=== PATIENT | male | born 1965 | race Caucasian/White ===

== ENCOUNTER 2017-03-24 07:06 | Emergency (ER) | payer OTHER ==
[2017-03-24 07:22] VITALS: BP 147/85; PULSE 68; TEMP 98; BMI 32.5
--- NOTE | 2017-03-24 08:18 | PDOC ---
History of Present Illness - General History Source: Patient Exam Limitations: No Limitations - History of Present Illness Initial Comments: 03/24/17 08:22 The patient is a 51-year-old male, with no significant past medical history, who presents to the ED with 3 weeks of red, itchy eyes, yellow discharge. Pt states that he suffers from seasonal allergies. He has been taking brandon, visine, and a nasal spray but with no relief of his symptoms. Pt is concerned for infection in his eyes due to excessive rubbing. Patient reports runny nose. The patient denies any fever, cough, chills, nausea, vomiting, diarrhea, or abdominal pain. The patient denies any shortness of breath or chest pain. <Jessica Lira - Last Filed: 03/24/17 08:21> <Rosemarie Golden - Last Filed: 03/25/17 09:36> - General Chief Complaint: Eye Problem Stated Complaint: EYE PROBLEM Time Seen by Provider: 03/24/17 07:32 Past History <Jessica Lira - Last Filed: 03/24/17 08:21> - Past Medical History Seizures: Yes (last seizure 2006) - Immunization History Immunization Up to Date: Yes - Psycho/Social/Smoking Cessation Hx Anxiety: No Suicidal Ideation: No Smoking Status: No Smoking History: Never smoked Have you smoked in the past 12 months: No Number of Cigarettes Smoked Daily: 0 Information on smoking cessation initiated: No Hx Alcohol Use: No Drug/Substance Use Hx: No Substance Use Type: None <Rosemarie Golden - Last Filed: 03/25/17 09:36> - Past Medical History Allergies/Adverse Reactions: Allergies Allergy/AdvReac Type Severity Reaction Status Date / Time phenytoin sodium extended Allergy Rash Verified 03/24/17 07:18 [From Dilantin] Home Medications: Ambulatory Orders NK [No Known Home Medication] 03/24/17 Polymyxin B Sulf/Trimethoprim [Polymyxin B-Tmp Eye Drops] 1 - 2 drop OU Q6H #10 ml 03/24/17 Review of Systems - Review of Systems Able to Perform ROS?: Yes Comments:: 03/24/17 08:22 GENERAL/CONSTITUTIONAL: No fever or chills. No weakness. HEAD, EYES, EARS, NOSE AND THROAT: No change in vision. No ear pain or discharge. No sore throat. (+)Red, itchy eyes, yellow discharge. Runny nose. CARDIOVASCULAR: No chest pain or shortness of breath. RESPIRATORY: No cough, wheezing, or hemoptysis. GASTROINTESTINAL: No nausea, vomiting, diarrhea or constipation. GENITOURINARY: No dysuria, frequency, or change in urination. MUSCULOSKELETAL: No joint or muscle swelling or pain. No neck or back pain. SKIN: No rash NEUROLOGIC: No headache, vertigo, loss of consciousness, or change in strength/ sensation. ENDOCRINE: No increased thirst. No abnormal weight change. HEMATOLOGIC/LYMPHATIC: No anemia, easy bleeding, or history of blood clots. ALLERGIC/IMMUNOLOGIC: No hives or skin allergy. <Jessica Lira - Last Filed: 03/24/17 08:21> *Physical Exam - Vital Signs Last Vital Signs Temp Pulse Resp BP Pulse Ox 98 F 68 18 147/85 99 03/24/17 07:16 03/24/17 07:16 03/24/17 07:16 03/24/17 07:16 03/24/17 07:16 <Jessica Lira - Last Filed: 03/24/17 08:21> - Vital Signs Last Vital Signs Temp Pulse Resp BP Pulse Ox 98 F 68 18 147/85 99 03/24/17 07:16 03/24/17 07:16 03/24/17 07:16 03/24/17 07:16 03/24/17 07:16 - Physical Exam Comments: GENERAL: Awake, alert, and fully oriented, in no acute distress HEAD: No signs of trauma EYES: PERRLA, EOMI, sclera anicteric, conjunctiva injected. Matting of the lashes B/L. ENT: Auricles normal inspection, hearing grossly normal, nares with boggy turbinates B/L. Oropharynx clear without exudates. Moist mucosa NECK: Normal ROM, supple, no lymphadenopathy, JVD, or masses LUNGS: Breath sounds equal, clear to auscultation bilaterally. No wheezes, and no crackles HEART: Regular rate and rhythm, normal S1 and S2, no murmurs, rubs or gallops ABDOMEN: Soft, nontender, normoactive bowel sounds. No guarding, no rebound. No masses EXTREMITIES: Normal range of motion, no edema. No clubbing or cyanosis. No cords, erythema, or tenderness NEUROLOGICAL: Cranial nerves II through XII grossly intact. Normal speech, normal gait SKIN: Warm, Dry, normal turgor, no rashes or lesions noted. <Rosemarie Golden - Last Filed: 03/25/17 09:36> Medical Decision Making - Medical Decision Making Symptoms likely due to seasonal allergic conjunctivitis followed by excessive rubbing, leading to bacterial conjunctivitis. Will treat with antibiotic drops, zaditor (OTC), brandon, and nasacort. <Rosemarie Golden - Last Filed: 03/25/17 09:36> *DC/Admit/Observation/Transfer - Attestations Scribe Attestion: 03/24/17 08:23 Documentation prepared by Jessica Lira, acting as outside medical sales representative for Rosemarie Golden MD. <Jessica Lira - Last Filed: 03/24/17 08:21> - Discharge Dispostion Admit: No <Rosemarie Golden - Last Filed: 03/25/17 09:36> Diagnosis at time of Disposition: Conjunctivitis Qualifiers: Conjunctivitis type: acute Acute conjunctivitis type: bacterial Laterality: bilateral Qualified Code(s): H10.33 - Unspecified acute conjunctivitis, bilateral Allergic conjunctivitis Qualifiers: Laterality: bilateral Qualified Code(s): H10.13 - Acute atopic conjunctivitis, bilateral - Discharge Dispostion Disposition: HOME Condition at time of disposition: Stable - Prescriptions Prescriptions: Polymyxin B Sulf/Trimethoprim [Polymyxin B-Tmp Eye Drops] 1 - 2 drop OU Q6H #10 ml - Patient Instructions Printed Discharge Instructions: DI for Conjunctivitis, DI for Allergic Rhinitis Additional Instructions: ZADITOR DROPS (OVER THE COUNTER) TO THE EYES ON BOTH SIDES EVERY 8-12 HOURS. TAKE POLYMYXIN/TMP DROPS PRESCRIBED TO TREAT THE INFECTION. NASACORT (OVER THE COUNTER) 2 SPRAYS EACH NOSTRIL DAILY. YOU MUST CONSISTENTLY TAKE EVERY DAY FOR IT TO WORK! Print Language: BELARUSIAN
== END 2017-03-24 09:27 | disposition home or self-care (01) ==
LOC: JER 07:06
DX: H10.13 Acute atopic conjunctivitis, bilateral (principal); H10.33 Unspecified acute conjunctivitis, bilateral; Z86.69 Personal history of other diseases of the nervous system and sense organs
CPT/HCPCS: 99281-25

== ENCOUNTER 2018-03-22 16:32 | Emergency (ER) | payer OTHER ==
[2018-03-22 16:56] VITALS: BP 138/85; PULSE 80; TEMP 98.6; BMI 32.5
--- NOTE | 2018-03-22 16:59 | PDOC ---
Rapid Medical Evaluation Chief Complaint: Allergic Reaction Time Seen by Provider: 03/22/18 16:56 Medical Evaluation: Allergies Allergy/AdvReac Type Severity Reaction Status Date / Time phenytoin sodium extended Allergy Rash Verified 03/22/18 16:47 [From Dilantin] Vital Signs Temp Pulse Resp BP Pulse Ox 98.6 F 80 20 138/85 96 03/22/18 16:47 03/22/18 16:47 03/22/18 16:47 03/22/18 16:47 03/22/18 16:47 03/22/18 16:56 I have performed a brief in-person evaluation of this patient. The patient presents with a chief complaint of: b/l conjunctival erythema and itching x 1 week, taking claritin and otc eye drops with no relief Pertinent physical exam findings:minimal periorbital edema b/l w/ conjunctival erythema and chemosis to R eye c/w allergies conjunctivitis I have ordered the following:nothing The patient will proceed to the ED for further evaluation Discharge Disposition - Diagnosis Allergic conjunctivitis Qualifiers: Laterality: bilateral Qualified Code(s): H10.13 - Acute atopic conjunctivitis, bilateral - Referrals Referrals: Akiko Quezada [Primary Care Provider] - - Patient Instructions - Post Discharge Activity
--- NOTE | 2018-03-22 17:35 | PDOC ---
History of Present Illness - General Chief Complaint: Eye Problem Stated Complaint: ALLERGY Time Seen by Provider: 03/22/18 16:56 History Source: Patient Exam Limitations: No Limitations - History of Present Illness Initial Comments: 03/22/18 17:34 52-year-old man without significant past medical history presents emergency Department with 1 week of itchy watery eyes. Patient's been taking over-the- counter Claritin and some "eyedrops she was prescribed last year." Patient states he been expressing minimal relief of symptoms with this treatment. He denies any fevers, chills, shortness of breath, dizziness, blurry vision or eye discharge. Past History - Past Medical History Allergies/Adverse Reactions: Allergies Allergy/AdvReac Type Severity Reaction Status Date / Time phenytoin sodium extended Allergy Rash Verified 03/22/18 16:47 [From Dilantin] Home Medications: Ambulatory Orders Cromolyn Sodium [Crolom -] 2 drop OU Q4H #120 drops 03/22/18 COPD: No Seizures: Yes (last seizure 2006) - Immunization History Immunization Up to Date: Yes - Suicide/Smoking/Psychosocial Hx Smoking Status: No Smoking History: Never smoked Have you smoked in the past 12 months: No Number of Cigarettes Smoked Daily: 0 Hx Alcohol Use: No Drug/Substance Use Hx: No Substance Use Type: None Review of Systems - Review of Systems Able to Perform ROS?: Yes Is the patient limited Peruvian proficient: No Constitutional: No: Symptoms Reported HEENTM: Yes: See HPI Respiratory: No: Symptoms reported Cardiac (ROS): No: Symptoms Reported ABD/GI: No: Symptoms Reported : No: Symptoms Reported Musculoskeletal: No: Symptoms Reported Integumentary: No: Symptoms Reported Neurological: No: Symptoms reported *Physical Exam - Vital Signs Last Vital Signs Temp Pulse Resp BP Pulse Ox 98.6 F 80 20 138/85 96 03/22/18 16:47 03/22/18 16:47 03/22/18 16:47 03/22/18 16:47 03/22/18 16:47 - Physical Exam General Appearance: Yes: Appropriately Dressed. No: Apparent Distress HEENT: positive: EOMI, MAJOR, Other (Bilateral scleral injection noted to extending through the limbus. Conjunctiva inflamed bilaterally.) Neck: positive: Trachea midline Respiratory/Chest: positive: Lungs Clear, Normal Breath Sounds. negative: Respiratory Distress, Accessory Muscle Use Medical Decision Making - Medical Decision Making 03/22/18 17:36 A/P: 51-year-old male with 1 week of ALLERGIC conjunctivitis Visual acuity 20/20 EOMI PERRLA Scleral injection extending through the limbus Conjunctival erythema present Symptoms consistent with ALLERGIC conjunctivitis. I'll prescribe patient cromolyn drops in addition to [id number] antihistamine medication. Patient verbalizes understanding of discharge instructions. *DC/Admit/Observation/Transfer Diagnosis at time of Disposition: Allergic conjunctivitis Qualifiers: Laterality: bilateral Qualified Code(s): H10.13 - Acute atopic conjunctivitis, bilateral - Discharge Dispostion Disposition: HOME Condition at time of disposition: Stable Decision to Admit order: No - Prescriptions Prescriptions: Cromolyn Sodium [Crolom -] 2 drop OU Q4H #120 drops - Referrals Referrals: Akiko Quezada [Primary Care Provider] - - Patient Instructions Additional Instructions: Rest, drink lots of fluids: Teas, water, soups Saltwater gargles. Consider humidifier in room at night Steamy showers/seem to face break up mucus Avoid contact with allergens, exposure to pollens, close windows on a windy day Lots of handwashing and good hygiene Continue [id number] medications for symptomatic relief- use cromolyn eyedrops for itching Continue antihistamines daily until pollen season is over; Zyrtec, Claritin, Stephanie, Xyzol during the daytime and Benadryl at nighttime as will make sleepy Tylenol or Motrin for fever and pain Followup with private physician in one to 2 days as needed Consider following up with an case management rn/card scraper for skin testing and possible allergy shots Return to emergency department for worsened symptoms, fevers, dehydration - Post Discharge Activity
== END 2018-03-22 17:36 | disposition home or self-care (01) ==
LOC: JERFT 16:32 → JER 16:32 → JERFT 17:36
DX: H10.13 Acute atopic conjunctivitis, bilateral (principal)
CPT/HCPCS: 99281-25

== ENCOUNTER 2021-04-30 13:49 | Emergency (ER) | payer OTHER ==
[2021-04-30 13:57] VITALS: BP 137/91; PULSE 61; TEMP 98.8; BMI 25.1
[2021-04-30] MEDS ORDERED: ACETAMINOPHEN 325 MG TABLET (FP) PO ONE (16:43)
[2021-04-30] MEDS ORDERED: ACETAMINOPHEN 325 MG TABLET (FP) ONE (17:21)
== END 2021-04-30 17:36 | disposition home or self-care (01) ==
LOC: JER 13:49
DX: S06.5X0A Traumatic subdural hemorrhage without loss of consciousness, initial encounter (principal)
CPT/HCPCS: 70450-TC; 72125-TC; 99284-25